=== PATIENT | male | born 1935 | race Two or more races ===

== ENCOUNTER 2016-05-20 13:28 | Inpatient (IN) | payer OTHER, MEDICAID ==
[~2016-05-20] VITALS: Ht 162.6 cm; Wt 71.2 kg
[~2016-05-20 13:28] MED LIST: AML5T PO; ASPI81CH43 PO; Atorvastatin Calcium PO; LANC-347; METO25TA62 PO; TAM04C PO; [UNRECOGNIZED DRUG - CODE] SC
[2016-05-20 14:27] LABS: Basophils # (auto) 0 uL; Basophils % (auto) 0.3 % (0.0-2.0); Eosinophils # (auto) 0.1 uL; Eosinophils % (auto) 0.7 % (0.0-7.0); Hematocrit 43.8 % (41.0-53.0); Hemoglobin 14.1 g/dL (13.5-17.5); Lymphocytes # (auto) 1.4 uL; Lymphocytes % (auto) 14.6 % (10.0-50.0); Mean Corpuscular Hemoglobin 27.2 pg (28.0-32.0); Mean Corpuscular Hgb Conc. 32.1 g/dL (32.0-36.0); Mean Corpuscular Volume 84.9 fL (80.0-100.0); Mean Platelet Volume 7.9 fL (7.4-10.4); Monocytes # (auto) 0.4 uL; Monocytes % (auto) 3.6 % (0.0-12.0); Neutrophils % (auto) 80.8 % (37.0-80.0); Platelet Count (auto) 318 10^3/uL (140-450); Red Cell Distribution Width 14.5 % (11.6-16.0); White Blood Cell 9.9 10^3/uL (4.4-10.8)
[2016-05-20 14:43] LABS: Albumin 2.7 g/dL (3.4-5.0); BUN/Creatinine Ratio 19.7; Calcium 8.3 mg/dL (8.5-10.1)
[2016-05-20 14:46] LABS: Bilirubin, Total 0.7 mg/dL (0.2-1.0); Total Protein 6.5 g/dL (6.4-8.2)
[2016-05-20] MEDS ORDERED: DEXTROSE (50%) 50ML SYRG IV PRN ×2 (22:30→23:15)
[2016-05-20] MEDS: SODIUM CHLORIDE 0.9% 1,000 ML IV SCH (23:07)
[2016-05-20] MEDS ORDERED: LACTULOSE 20Gm/30ML SOLN PO PRN (23:15)
[2016-05-21] MEDS ORDERED: ACCU-CHEK COMFORT CURVE STRIP VI SCH
[2016-05-21] MEDS ORDERED: InsuLIN REG 1unit/0.01ml Soln (100units/ml) SC SCH
[2016-05-21 02:34] VITALS: BP 158/83
[2016-05-21 05:54] LABS: Basophils # (auto) 0 uL; Basophils % (auto) 0.3 % (0.0-2.0); Eosinophils # (auto) 0.1 uL; Eosinophils % (auto) 1.4 % (0.0-7.0); Hematocrit 38.9 % (41.0-53.0); Hemoglobin 12.6 g/dL (13.5-17.5); Lymphocytes # (auto) 1.8 uL; Lymphocytes % (auto) 27.2 % (10.0-50.0); Mean Corpuscular Hemoglobin 27.2 pg (28.0-32.0); Mean Corpuscular Hgb Conc. 32.3 g/dL (32.0-36.0); Mean Corpuscular Volume 84.1 fL (80.0-100.0); Mean Platelet Volume 8.2 fL (7.4-10.4); Monocytes # (auto) 0.5 uL; Monocytes % (auto) 7.6 % (0.0-12.0); Neutrophils # (auto) 4.3 uL; Neutrophils % (auto) 63.5 % (37.0-80.0); Platelet Count (auto) 292 10^3/uL (140-450); Red Cell Distribution Width 14.3 % (11.6-16.0); White Blood Cell 6.8 10^3/uL (4.4-10.8)
[2016-05-21 06:00] VITALS: BP 156/89
[2016-05-21] MEDS: InsuLIN REG 1unit/0.01ml Soln (100units/ml) SC SCH ×3 (06:00→12:00)
[2016-05-21] MEDS: ACCU-CHEK COMFORT CURVE STRIP VI SCH ×3 (06:03→12:00)
[2016-05-21 06:12] LABS: Potassium 4.1 mmol/L (3.5-5.1)
[2016-05-21 06:19] LABS: Albumin 2.5 g/dL (3.4-5.0); BUN/Creatinine Ratio 23.1; Calcium 8.3 mg/dL (8.5-10.1)
[2016-05-21 06:21] LABS: Bilirubin, Total 0.6 mg/dL (0.2-1.0)
[2016-05-21 09:30] VITALS: BP 135/82
[2016-05-21] MEDS ORDERED: ASPirin 81 mg TAB PO SCH (10:00)
[2016-05-21] MEDS ORDERED: ENOXAPARIN SOD 30 MG/0.3 ML SYRINGE SC SCH (10:00)
[2016-05-21] MEDS ORDERED: amLODIPine BESYLATE 5 MG TAB PO SCH (10:00)
[2016-05-21] MEDS ORDERED: ENOXAPARIN SOD 40 MG/0.4 ML SYRINGE SC SCH (10:00)
[2016-05-21] MEDS: SODIUM CHLORIDE 0.9% 1,000 ML IV SCH (11:37)
[2016-05-21 13:30] VITALS: BP 128/66
[2016-05-21 14:52] VITALS: BP 128/66
[2016-05-21] MEDS ORDERED: TAMSULOSIN HYDROCHLORIDE 0.4 MG CAP PO SCH (18:00)
[2016-05-21] MEDS ORDERED: ATORVASTATIN 20 MG TAB PO SCH (22:00)
== END 2016-05-21 16:40 | disposition home or self-care (01) | DRG 637 ==
LOC: ER 13:28 → EDBD 13:28 → TELE 13:29 → TELE-WESTW 23:55
PROVIDERS: ADMIT Family Medicine; ATTEND Internal Medicine
DX: E11.649 Type 2 diabetes mellitus with hypoglycemia without coma (principal); G93.41 Metabolic encephalopathy; E43 Unspecified severe protein-calorie malnutrition; E78.5 Hyperlipidemia, unspecified; E87.8 Other disorders of electrolyte and fluid balance, not elsewhere classified; F02.80 Dementia in other diseases classified elsewhere, unspecified severity, without behavioral disturbance, psychotic disturbance, mood disturbance, and anxiety; G30.9 Alzheimer's disease, unspecified; I10 Essential (primary) hypertension; I67.9 Cerebrovascular disease, unspecified; M10.9 Gout, unspecified; N40.0 Benign prostatic hyperplasia without lower urinary tract symptoms; Z79.4 Long term (current) use of insulin; Z83.3 Family history of diabetes mellitus; Z86.73 Personal history of transient ischemic attack (TIA), and cerebral infarction without residual deficits; Z91.14 Patient's other noncompliance with medication regimen; Z79.899 Other long term (current) drug therapy; Z68.26 Body mass index [BMI] 26.0-26.9, adult
CPT/HCPCS: 36415; 70450; 71010; 80053; 82962; 83036; 83735; 84484; 85025; 93005; 94761

== ENCOUNTER 2017-06-02 13:28 | Emergency (ER) | payer OTHER, MEDICAID ==
[~2017-06-02] VITALS: Ht 170.2 cm; Wt 59.0 kg
[~2017-06-02 13:28] MED LIST changes: -LANC-347
[2017-06-02 14:35] LABS: Urine Bacteria None Seen /hpf (None Seen)
[2017-06-02 14:36] LABS: Basophils # (auto) 0 uL; Basophils % (auto) 0.5 % (0.0-2.0); Eosinophils # (auto) 0.1 uL; Eosinophils % (auto) 0.9 % (0.0-7.0); Hematocrit 36.7 % (41.0-53.0); Hemoglobin 11.9 g/dL (13.5-17.5); Lymphocytes # (auto) 1.6 uL; Lymphocytes % (auto) 21.5 % (10.0-50.0); Mean Corpuscular Hemoglobin 27.8 pg (28.0-32.0); Mean Corpuscular Hgb Conc. 32.4 g/dL (32.0-36.0); Mean Corpuscular Volume 85.8 fL (80.0-100.0); Monocytes # (auto) 0.4 uL; Monocytes % (auto) 5.6 % (0.0-12.0); Neutrophils # (auto) 5.3 uL; Neutrophils % (auto) 71.5 % (37.0-80.0); Platelet Count (auto) 292 10^3/uL (140-450); Red Blood Cells 4.28 10^6/uL (4.5-5.90); White Blood Cell 7.4 10^3/uL (4.4-10.8)
[2017-06-02] MEDS ORDERED: SODIUM CHLORIDE 0.9% 1,000 ML IV ONE (14:43)
[2017-06-02] MEDS ORDERED: LABETALOL HCL 5 MG/ML ML 20ML VIAL IV ONE (14:45)
[2017-06-02 14:52] LABS: INR 1.01 (0.9-1.15); Partial Thromboplastin Time 27.8 sec (22.64-33.71)
[2017-06-02] MEDS ORDERED: LORazepam 2MG/ML-1ML VIAL IV ONE (15:00)
[2017-06-02 15:09] LABS: Alanine Aminotransferase 20 U/L (16-61); Albumin 3.3 g/dL (3.4-5.0); Alkaline Phosphatase 99 U/L (45-117); Anion Gap 10 (5-15); Aspartate Aminotransferase 21 U/L (15-37); BUN/Creatinine Ratio 11.8; Bilirubin, Total 0.9 mg/dL (0.2-1.0); Blood Urea Nitrogen 42 mg/dL (7-18); Calcium 8.6 mg/dL (8.5-10.1); Carbon Dioxide 18 mmol/L (21-32); Chloride 115 mmol/L (98-107); GFR African American 21 mL/min; GFR Non-African American 18 mL/min; Glucose 147 mg/dL (74-106); Potassium 5.2 mmol/L (3.5-5.1); Sodium 143 mmol/L (136-145); Total Protein 7.7 g/dL (6.4-8.2)
[2017-06-02 15:40] VITALS: BP 148/90
[2017-06-02 16:04] LABS: Urine Blood 2+ /uL (Negative); Urine Specific Gravity 1.007 (1.001-1.035)
[2017-06-02 16:06] LABS: Urine WBC 1 /hpf (0 - 3)
== END 2017-06-02 15:54 ==
LOC: ER 13:28 → EDBD 13:28 → ER 15:54
DX: I61.9 Nontraumatic intracerebral hemorrhage, unspecified (principal); I10 Essential (primary) hypertension; G30.9 Alzheimer's disease, unspecified; F02.80 Dementia in other diseases classified elsewhere, unspecified severity, without behavioral disturbance, psychotic disturbance, mood disturbance, and anxiety; E10.9 Type 1 diabetes mellitus without complications; E78.5 Hyperlipidemia, unspecified; Z79.82 Long term (current) use of aspirin; Z79.4 Long term (current) use of insulin; Z79.899 Other long term (current) drug therapy
CPT/HCPCS: 36415; 51702; 70450; 71045; 80053; 81001; 82962; 83735; 84443; 84484; 85025; 85610; 85730; 93005; 94761; 96361; 96374; 96375; 99285; J2060

== ENCOUNTER 2017-08-05 12:13 | Inpatient (IN) | payer OTHER, MEDICAID ==
[~2017-08-05] VITALS: Ht 175.3 cm; Wt 47.9 kg
[2017-08-05 12:52] LABS: Basophils # (auto) 0 uL; Basophils % (auto) 0.4 % (0.0-2.0); Eosinophils # (auto) 0.1 uL; Hemoglobin 10.1 g/dL (13.5-17.5); Lymphocytes # (auto) 1.8 uL; Monocytes # (auto) 0.4 uL; Monocytes % (auto) 4.5 % (0.0-12.0)
[2017-08-05 12:55] LABS: Eosinophils % (auto) 0.7 % (0.0-7.0); Hematocrit 33.6 % (41.0-53.0); Lymphocytes % (auto) 19.2 % (10.0-50.0); Mean Corpuscular Hgb Conc. 30.1 g/dL (32.0-36.0); Mean Corpuscular Volume 89.8 fL (80.0-100.0); Neutrophils % (auto) 75.2 % (37.0-80.0); Nucleated Red Blood Cells % 0.1 %; Platelet Count (auto) 255 10^3/uL (140-450); Red Blood Cells 3.74 10^6/uL (4.5-5.90); Red Cell Distribution Width 16.5 % (11.8-14.3); White Blood Cell 9.3 10^3/uL (4.4-10.8)
[2017-08-05] MEDS ORDERED: SODIUM CHLORIDE 0.9% 1,000 ML IVB ONE (13:22)
[2017-08-05] MEDS ORDERED: cefTRIAXone 1GM/10ml IVPUSH 10 ML IV ONE ×2 (13:30→16:45)
[2017-08-05 13:57] LABS: Urine Bacteria NONE SEEN /hpf (None Seen); Urine Blood TRACE /uL (Negative); Urine Specific Gravity 1.014 (1.001-1.035); Urine WBC 328 /hpf (0 - 3)
[2017-08-05 13:59] LABS: Alanine Aminotransferase 22 U/L (16-61); Albumin 2.3 g/dL (3.4-5.0); Alkaline Phosphatase 131 U/L (45-117); Anion Gap 8 (5-15); Aspartate Aminotransferase 16 U/L (15-37); BUN/Creatinine Ratio 21.4; Bilirubin, Total 0.4 mg/dL (0.2-1.0); Blood Alcohol < 3.0 mg/dL (0-5); Calcium 8.2 mg/dL (8.5-10.1); Carbon Dioxide 15 mmol/L (21-32); Chloride 129 mmol/L (98-107); GFR African American 18 mL/min; GFR Non-African American 15 mL/min; Sodium 152 mmol/L (136-145); Total Protein 7.3 g/dL (6.4-8.2)
[2017-08-05 14:04] LABS: Blood Urea Nitrogen 88 mg/dL (7-18); Glucose 420 mg/dL (74-106); Potassium 5.8 mmol/L (3.5-5.1)
[2017-08-05] MEDS ORDERED: InsuLIN REG 1unit/0.01ml Soln (100units/ml) ONE (14:12)
[2017-08-05] MEDS ORDERED: InsuLIN REG 1unit/0.01ml Soln (100units/ml) IV ONE ×2 (14:15→16:30)
[2017-08-05] MEDS ORDERED: SODIUM CHLORIDE 0.9% 1,000 ML IV SCH (16:30)
[2017-08-05] MEDS ORDERED: SODIUM POLYSTYRENE SULF 15GM/60ML SUSP PO ONE (16:45)
[2017-08-05] MEDS ORDERED: SODIUM CHLORIDE 0.9% 1,000 ML IV ONE (16:45)
[2017-08-05] MEDS ORDERED: LORazepam 0.5 MG TAB PO PRN (16:45)
[2017-08-05] MEDS ORDERED: NITROGLYCERIN 0.4 MG SL TAB SL PRN (16:45)
[2017-08-05] MEDS ORDERED: HYDROcodone-ACET 5/325MG TAB PO PRN (16:45)
[2017-08-05] MEDS ORDERED: MORPHINE SULFATE 4 MG/ML SYR/VIAL IV PRN (16:45)
[2017-08-05] MEDS ORDERED: TEMAZEPAM 15 MG CAP PO PRN (16:45)
[2017-08-05] MEDS ORDERED: LACTULOSE 20Gm/30ML SOLN PO PRN (16:45)
[2017-08-05] MEDS ORDERED: FUROSEMIDE 20 MG/2 ML VIAL IV ONE (16:45)
[2017-08-05] MEDS ORDERED: ACETAMINOPHEN 500 MG TAB PO PRN (16:45)
[2017-08-05] MEDS ORDERED: PANTOPRAZOLE 40 MG/10 ML VIAL IV ONE (16:45)
[2017-08-05] MEDS ORDERED: LABETALOL HCL 5 MG/ML ML 20ML VIAL IV PRN (16:45)
[2017-08-05] MEDS ORDERED: PROMETHAZINE HCL 25 MG/ML 1ML IV PRN (16:45)
[2017-08-05] MEDS ORDERED: DEXTROSE (50%) 50ML SYRG IV PRN (16:45)
[2017-08-05] MEDS ORDERED: PIPERACILLIN-TAZOB 2.25GM 50 ML IV ONE ×2 (17:00→23:53)
[2017-08-05] MEDS: MORPHINE SULFATE 4 MG/ML SYR/VIAL IV PRN (17:15)
[2017-08-05 18:13] LABS: Hematocrit 29.1 % (41.0-53.0)
[2017-08-05 18:19] LABS: Amylase 53 U/L (25-115); Cholesterol 140 mg/dL (< 200); Creatine Kinase IFCC 100 U/L (39-308); HDL Cholesterol 35 mg/dL (40-59); LDL Cholesterol 70 mg/dL (< 100); Lipase 425 U/L (73-393); Triglycerides 242 mg/dL (< 150)
[2017-08-05] MEDS: SOD CHL 0.45% 1,000 ML IV SCH ×2 (18:24→22:11)
[2017-08-05 18:29] LABS: BUN/Creatinine Ratio 22.3; Calcium 7.8 mg/dL (8.5-10.1); Potassium 4.5 mmol/L (3.5-5.1)
[2017-08-05] MEDS: TAMSULOSIN HYDROCHLORIDE 0.4 MG CAP PO SCH (18:33)
[2017-08-05] MEDS: ACCU-CHEK COMFORT CURVE STRIP VI SCH ×2 (19:50→23:56)
[2017-08-05] MEDS: InsuLIN REG 1unit/0.01ml Soln (100units/ml) SC SCH (19:50)
[2017-08-05 20:32] VITALS: BP 98/49
[2017-08-05 22:00] VITALS: BP 107/53
[2017-08-05] MEDS: ATORVASTATIN 20 MG TAB PO SCH (22:00)
[2017-08-05] MEDS: PIPERACILLIN-TAZOB 2.25GM 50 ML IV SCH (23:57)
[2017-08-06] MEDS: InsuLIN REG 1unit/0.01ml Soln (100units/ml) SC SCH ×6 (03:54→20:52)
[2017-08-06] MEDS: ACCU-CHEK COMFORT CURVE STRIP VI SCH ×5 (03:54→20:52)
[2017-08-06 05:09] VITALS: BP 109/60
[2017-08-06] MEDS ORDERED: PIPERACILLIN-TAZOB 2.25GM 50 ML IV ONE (05:40)
[2017-08-06] MEDS: PIPERACILLIN-TAZOB 2.25GM 50 ML IV SCH ×3 (05:42→18:00)
[2017-08-06 07:22] LABS: Basophils # (auto) 0 uL; Basophils % (auto) 0.5 % (0.0-2.0); Eosinophils # (auto) 0.1 uL; Hematocrit 28.7 % (41.0-53.0); Lymphocytes # (auto) 2.2 uL; Lymphocytes % (auto) 33.4 % (10.0-50.0); Mean Corpuscular Hemoglobin 27.3 pg (28.0-32.0); Mean Corpuscular Hgb Conc. 31.4 g/dL (32.0-36.0); Mean Corpuscular Volume 86.8 fL (80.0-100.0); Monocytes # (auto) 0.3 uL; Monocytes % (auto) 4.6 % (0.0-12.0); Neutrophils # (auto) 3.9 uL; Neutrophils % (auto) 59.5 % (37.0-80.0); Nucleated Red Blood Cells % 0.1 %; Platelet Count (auto) 229 10^3/uL (140-450); White Blood Cell 6.5 10^3/uL (4.4-10.8)
[2017-08-06 07:33] LABS: BUN/Creatinine Ratio 21.7; Calcium 7.6 mg/dL (8.5-10.1); Potassium 5.5 mmol/L (3.5-5.1)
[2017-08-06 09:00] VITALS: BP 138/66
[2017-08-06] MEDS ORDERED: cefTRIAXone 1GM/10ml IVPUSH 10 ML IV SCH (09:00)
[2017-08-06 10:32] LABS: Carcinoembryonic Antigen 1.53 ng/mL (<5.0 OR =)
[2017-08-06 10:33] LABS: Folate (Folic Acid) 9.64 ng/mL (5.38-24)
[2017-08-06] MEDS: ASPirin 81 mg TAB PO SCH (10:55)
[2017-08-06] MEDS: PANTOPRAZOLE 40 MG/10 ML VIAL IV SCH (10:55)
[2017-08-06] MEDS: METOPROLOL SUCCINATE XL 50 MG TAB PO SCH (10:56)
[2017-08-06] MEDS: amLODIPine BESYLATE 5 MG TAB PO SCH (10:56)
[2017-08-06] MEDS: SOD CHL 0.45% 1,000 ML IV SCH ×2 (12:21→22:25)
[2017-08-06 13:00] VITALS: BP_SYST 138; BP_SYST 98; BP_DIAS 66
[2017-08-06] MEDS ORDERED: InsuLIN REG 1unit/0.01ml Soln (100units/ml) IV ONE (13:30)
[2017-08-06] MEDS ORDERED: DEXTROSE (25%) 10 ML SYRG IV ONE (13:30)
[2017-08-06] MEDS: MORPHINE SULFATE 4 MG/ML SYR/VIAL IV PRN (14:07)
[2017-08-06] MEDS ORDERED: LORazepam 2MG/ML-1ML VIAL IV ONE (14:30)
[2017-08-06 15:07] LABS: Basophils # (auto) 0 uL; Eosinophils # (auto) 0.2 uL; Hematocrit 24.7 % (41.0-53.0); Hemoglobin 7.7 g/dL (13.5-17.5); Lymphocytes # (auto) 2.3 uL; Monocytes # (auto) 0.5 uL; Red Blood Cells 2.78 10^6/uL (4.5-5.90)
[2017-08-06 15:08] LABS: Basophils % (auto) 0.4 % (0.0-2.0); Eosinophils % (auto) 2.2 % (0.0-7.0); Lymphocytes % (auto) 28.5 % (10.0-50.0); Mean Corpuscular Hemoglobin 27.5 pg (28.0-32.0); Mean Corpuscular Volume 88.8 fL (80.0-100.0); Monocytes % (auto) 5.8 % (0.0-12.0); Neutrophils # (auto) 5.2 uL; Neutrophils % (auto) 63.1 % (37.0-80.0); Platelet Count (auto) 221 10^3/uL (140-450); Red Cell Distribution Width 16.4 % (11.8-14.3); White Blood Cell 8.2 10^3/uL (4.4-10.8)
[2017-08-06 15:23] LABS: BUN/Creatinine Ratio 19.3; Calcium 7.7 mg/dL (8.5-10.1); Magnesium 2.4 mg/dL (1.6-2.6)
[2017-08-06 16:10] LABS: INR 1.09 (0.9-1.15); Partial Thromboplastin Time 28.5 sec (22.64-33.71); Prothrombin Time 11.9 sec (9.37-12.3)
[2017-08-06 16:59] VITALS: BP 108/56
[2017-08-06] MEDS: TAMSULOSIN HYDROCHLORIDE 0.4 MG CAP PO SCH (18:00)
[2017-08-06 19:31] LABS: Hematocrit 30.9 % (41.0-53.0); Hemoglobin 9.6 g/dL (13.5-17.5)
[2017-08-06 20:00] VITALS: BP 133/53
[2017-08-06] MEDS: ATORVASTATIN 20 MG TAB PO SCH (22:30)
[2017-08-07] MEDS: ACCU-CHEK COMFORT CURVE STRIP VI SCH ×6 (00:38→20:10)
[2017-08-07] MEDS: PIPERACILLIN-TAZOB 2.25GM 50 ML IV SCH ×4 (00:38→21:53)
[2017-08-07] MEDS: InsuLIN REG 1unit/0.01ml Soln (100units/ml) SC SCH ×6 (00:39→20:00)
[2017-08-07 05:12] VITALS: BP 92/44
[2017-08-07 07:04] LABS: BUN/Creatinine Ratio 18.5; Calcium 7.7 mg/dL (8.5-10.1); Magnesium 2.3 mg/dL (1.6-2.6)
[2017-08-07 07:11] LABS: Potassium 5.7 mmol/L (3.5-5.1)
[2017-08-07 08:35] VITALS: BP 100/61
[2017-08-07] MEDS: amLODIPine BESYLATE 5 MG TAB PO SCH (10:00)
[2017-08-07] MEDS: METOPROLOL SUCCINATE XL 50 MG TAB PO SCH (10:00)
[2017-08-07] MEDS: PANTOPRAZOLE 40 MG/10 ML VIAL IV SCH (10:32)
[2017-08-07] MEDS: ASPirin 81 mg TAB PO SCH (10:32)
[2017-08-07 13:00] VITALS: BP 104/56
[2017-08-07] MEDS: SODIUM BICARBONATE 50ML VIAL 100 ML in D5W 5% 1,000 ML IV SCH ×2 (13:44→23:30)
[2017-08-07 14:46] LABS: Protein, Urine 77.3 mg/dL (0.0-11.9)
[2017-08-07 16:36] VITALS: BP 130/66
[2017-08-07] MEDS: TAMSULOSIN HYDROCHLORIDE 0.4 MG CAP PO SCH (18:00)
[2017-08-07] MEDS: ATORVASTATIN 20 MG TAB PO SCH (21:53)
[2017-08-07 22:00] VITALS: BP 149/70
[2017-08-08] MEDS: ACCU-CHEK COMFORT CURVE STRIP VI SCH ×7 (00:30→23:27)
[2017-08-08] MEDS: SODIUM BICARBONATE 50ML VIAL 100 ML in D5W 5% 1,000 ML IV SCH ×3 (04:09→23:04)
[2017-08-08] MEDS: InsuLIN REG 1unit/0.01ml Soln (100units/ml) SC SCH ×7 (04:09→23:27)
[2017-08-08 05:25] VITALS: BP 139/71
[2017-08-08] MEDS: PIPERACILLIN-TAZOB 2.25GM 50 ML IV SCH ×3 (06:18→23:03)
[2017-08-08 07:40] VITALS: BP 122/70
[2017-08-08 07:52] LABS: Albumin 1.9 g/dL (3.4-5.0); BUN/Creatinine Ratio 16.6; Bilirubin, Total 0.5 mg/dL (0.2-1.0); Calcium 7.6 mg/dL (8.5-10.1); Phosphorus 2.4 mg/dL (2.5-4.90); Potassium 4.9 mmol/L (3.5-5.1); Total Protein 6.6 g/dL (6.4-8.2)
[2017-08-08] MEDS: amLODIPine BESYLATE 5 MG TAB PO SCH (10:00)
[2017-08-08] MEDS: PANTOPRAZOLE 40 MG/10 ML VIAL IV SCH (10:57)
[2017-08-08] MEDS: ASPirin 81 mg TAB PO SCH (10:58)
[2017-08-08 13:00] VITALS: BP 109/70
[2017-08-08 16:42] VITALS: BP 115/69
[2017-08-08] MEDS: TAMSULOSIN HYDROCHLORIDE 0.4 MG CAP PO SCH (17:51)
[2017-08-08 22:43] VITALS: BP 108/57
[2017-08-08] MEDS: ATORVASTATIN 20 MG TAB PO SCH (23:03)
[2017-08-09] MEDS: ACCU-CHEK COMFORT CURVE STRIP VI SCH ×5 (03:56→21:05)
[2017-08-09] MEDS: InsuLIN REG 1unit/0.01ml Soln (100units/ml) SC SCH ×5 (03:56→21:07)
[2017-08-09] MEDS: PIPERACILLIN-TAZOB 2.25GM 50 ML IV SCH ×3 (05:26→21:51)
[2017-08-09 07:19] LABS: Basophils # (auto) 0 uL; Basophils % (auto) 0.5 % (0.0-2.0); Eosinophils # (auto) 0.1 uL; Eosinophils % (auto) 2.5 % (0.0-7.0); Hematocrit 27.7 % (41.0-53.0); Hemoglobin 9.2 g/dL (13.5-17.5); Lymphocytes # (auto) 2.1 uL; Lymphocytes % (auto) 46.9 % (10.0-50.0); Mean Corpuscular Hemoglobin 27.5 pg (28.0-32.0); Mean Corpuscular Volume 83.4 fL (80.0-100.0); Monocytes # (auto) 0.3 uL; Neutrophils # (auto) 1.9 uL; Neutrophils % (auto) 43.1 % (37.0-80.0); Nucleated Red Blood Cells % 0.1 %; Platelet Count (auto) 202 10^3/uL (140-450); Red Blood Cells 3.33 10^6/uL (4.5-5.90); Red Cell Distribution Width 15.5 % (11.8-14.3); White Blood Cell 4.5 10^3/uL (4.4-10.8)
[2017-08-09 07:31] LABS: Albumin 1.7 g/dL (3.4-5.0); BUN/Creatinine Ratio 15.8; Bilirubin, Total 0.5 mg/dL (0.2-1.0); Calcium 7.2 mg/dL (8.5-10.1); Magnesium 1.9 mg/dL (1.6-2.6); Potassium 4.1 mmol/L (3.5-5.1); Total Protein 5.9 g/dL (6.4-8.2)
[2017-08-09 09:00] VITALS: BP 121/64
[2017-08-09] MEDS: PANTOPRAZOLE 40 MG/10 ML VIAL IV SCH (09:45)
[2017-08-09] MEDS: ASPirin 81 mg TAB PO SCH (09:45)
[2017-08-09] MEDS: amLODIPine BESYLATE 5 MG TAB PO SCH (09:45)
[2017-08-09 13:00] VITALS: BP 128/66
[2017-08-09] MEDS: SODIUM BICARBONATE 50ML VIAL 100 ML in D5W 5% 1,000 ML IV SCH ×2 (15:52→19:30)
[2017-08-09 17:00] VITALS: BP 126/64
[2017-08-09] MEDS: TAMSULOSIN HYDROCHLORIDE 0.4 MG CAP PO SCH (18:00)
[2017-08-09] MEDS: ATORVASTATIN 20 MG TAB PO SCH (21:50)
[2017-08-09 22:00] VITALS: BP 122/66
[2017-08-10] MEDS: InsuLIN REG 1unit/0.01ml Soln (100units/ml) SC SCH ×4 (03:56→12:00)
[2017-08-10] MEDS: ACCU-CHEK COMFORT CURVE STRIP VI SCH ×4 (03:57→12:00)
[2017-08-10 05:00] VITALS: BP 131/71
[2017-08-10] MEDS: SODIUM BICARBONATE 50ML VIAL 100 ML in D5W 5% 1,000 ML IV SCH (05:44)
[2017-08-10] MEDS: PIPERACILLIN-TAZOB 2.25GM 50 ML IV SCH (05:44)
[2017-08-10 06:50] LABS: Potassium 4.2 mmol/L (3.5-5.1)
[2017-08-10 06:57] LABS: Albumin 1.8 g/dL (3.4-5.0); BUN/Creatinine Ratio 13.1; Calcium 7.5 mg/dL (8.5-10.1)
[2017-08-10 07:00] LABS: Bilirubin, Total 0.6 mg/dL (0.2-1.0); Total Protein 6.2 g/dL (6.4-8.2)
[2017-08-10 09:28] VITALS: BP 129/68
[2017-08-10] MEDS ORDERED: D5W/SOD CHL 0.45% 1,000 ML IV SCH (09:45)
[2017-08-10] MEDS: PANTOPRAZOLE 40 MG/10 ML VIAL IV SCH (10:38)
[2017-08-10] MEDS: ASPirin 81 mg TAB PO SCH (10:38)
[2017-08-10] MEDS: amLODIPine BESYLATE 5 MG TAB PO SCH (10:39)
[2017-08-10 10:59] VITALS: BP 129/68
== END 2017-08-10 12:22 | disposition hospice, home (50) | DRG 682 ==
LOC: EDBD 12:13 → ER 12:13 → TELE 12:14 → ER 17:18 → TELE-WESTW 20:06 → WEST WING 08-06 09:44
PROVIDERS: ADMIT Internal Medicine; ATTEND Internal Medicine
DX: N17.9 Acute kidney failure, unspecified (principal); E43 Unspecified severe protein-calorie malnutrition; E11.11 Type 2 diabetes mellitus with ketoacidosis with coma; G92 Toxic encephalopathy; E87.0 Hyperosmolality and hypernatremia; N39.0 Urinary tract infection, site not specified; E87.1 Hypo-osmolality and hyponatremia; Z68.1 Body mass index [BMI] 19.9 or less, adult; N13.8 Other obstructive and reflux uropathy; R64 Cachexia; G30.9 Alzheimer's disease, unspecified; F02.80 Dementia in other diseases classified elsewhere, unspecified severity, without behavioral disturbance, psychotic disturbance, mood disturbance, and anxiety; E11.21 Type 2 diabetes mellitus with diabetic nephropathy; N18.4 Chronic kidney disease, stage 4 (severe); N13.2 Hydronephrosis with renal and ureteral calculous obstruction; N32.0 Bladder-neck obstruction; E86.0 Dehydration; D63.1 Anemia in chronic kidney disease; E03.9 Hypothyroidism, unspecified; K59.00 Constipation, unspecified; G47.00 Insomnia, unspecified; Z66 Do not resuscitate; E11.22 Type 2 diabetes mellitus with diabetic chronic kidney disease; E78.5 Hyperlipidemia, unspecified; E87.5 Hyperkalemia; I12.9 Hypertensive chronic kidney disease with stage 1 through stage 4 chronic kidney disease, or unspecified chronic kidney disease; N40.1 Benign prostatic hyperplasia with lower urinary tract symptoms; M10.9 Gout, unspecified; Z79.4 Long term (current) use of insulin; Z83.3 Family history of diabetes mellitus; Z85.05 Personal history of malignant neoplasm of liver; Z86.73 Personal history of transient ischemic attack (TIA), and cerebral infarction without residual deficits; Z79.899 Other long term (current) drug therapy; Z71.89 Other specified counseling; Z87.81 Personal history of (healed) traumatic fracture
CPT/HCPCS: 36415; 51702; 70450; 71045; 74176; 76775; 80048; 80053; 80061; 80320; 81001; 82150; 82306; 82378; 82550; 82570; 82607; 82746; 82962; 83036; 83605; 83690; 83735; 83970; 84100; 84156; 84300; 84443; 84484; 84550; 85014; 85018; 85025; 85045; 85610; 85652; 85730; 87040; 87086; 92610; 93005; 94761; 96361; 96374; 96375; 96376; C9113; J1815; J2543